=== PATIENT | male | born 1965 | race Caucasian/White ===

== ENCOUNTER 2022-08-23 16:00 | Outpatient (CLI) | payer OTHER, SELFPAY | END 2022-08-23 16:01 | disposition home or self-care (01) | LOC: SLEEP 08-24 15:55 | PROVIDERS: Visit Provider Family Medicine | DX: G47.33 Obstructive sleep apnea (adult) (pediatric); R09.02 Hypoxemia | CPT/HCPCS: G0399 ==

== ENCOUNTER → 2024-07-03 15:11 | Outpatient (BNVA) | payer OTHER, SELFPAY | PROVIDERS: PCP Family Medicine; Visit Provider Specialist | DX: M79.642 Pain in left hand (principal); M19.132 Post-traumatic osteoarthritis, left wrist | CPT/HCPCS: 73130 ==